=== PATIENT | female | born 1975 | race Caucasian/White ===

== ENCOUNTER 2022-01-03 09:10 | Day surgery (SDC) | payer BC, OTHER ==
[~2022-01-03 09:10] MED LIST: Lactated Ringers 1,000 ML IV SCH
[2022-01-03] MEDS ORDERED: propofoL 50 ML ONE (10:10)
[2022-01-03] MEDS ORDERED: fentaNYL 100 MCG/2 ML SDV ONE (10:43)
[2022-01-03] MEDS ORDERED: Lidocaine 2% 5 ML SDV ONE (10:43)
[2022-01-03] MEDS ORDERED: Lactated Ringers 1,000 ML IV SCH (11:30)
== END 2022-01-03 12:05 | disposition home or self-care (01) ==
LOC: MW.SDS 09:10
PROVIDERS: ATTEND Surgery
DX: Z12.11 Encounter for screening for malignant neoplasm of colon (principal); M06.9 Rheumatoid arthritis, unspecified; K59.09 Other constipation; M35.1 Other overlap syndromes; F17.210 Nicotine dependence, cigarettes, uncomplicated; Z88.8 Allergy status to other drugs, medicaments and biological substances; Z88.5 Allergy status to narcotic agent; Z79.899 Other long term (current) drug therapy; Z98.890 Other specified postprocedural states
CPT/HCPCS: 45378; J2704; J3010; J7120